=== PATIENT | male | born 1955 | race Caucasian/White ===

== ENCOUNTER 2016-07-01 09:16 | Inpatient (IN) | payer MEDICARE, OTHER ==
--- NOTE | ~2016-07-01 | CT71 ---
[facility] A Service of [facility] RADIOLOGY TEXT RESULTS PATIENT: CORNELL MCCANN LOCATION: [facility] 456-01 : 54 UNIT #: [id number] AGE: [address]: Kain Banks MD SEX: M ORDER DR: [id number] [place] [id number] [facility]. [place], [place] [address] [id number] I MR#: [id number] Acc #: [id number] NAME: CORNELL MCCANN : 1955 SEX: M STUDY DATE/TIME: 07/05/2016 15:12 UNIT: [facility] ROOM: [facility] STUDY DESCRIPTION: CT Head Wo Contrast Attending Physician: Kain Banks M.D. Referring Physician: Kain Banks M.D. Ordering Physician: Artem Webb M.D. Primary Care Physician: Generic Doctor Not In System MEDICAL IMAGING REPORT This report is preliminary unless electronic signature is present EXAM CT brain without contrast media HISTORY Diplopia, left-sided weakness beginning approximately 30 minutes ago. TECHNIQUE Transaxial imaging of the brain was performed without IV contrast media. There are no prior studies for comparison. This CT exam was performed with one or more of the following radiation dose reduction techniques: Automatic exposure control, adjustment of mA and/or kV according to patient size, and iterative reconstruction. FINDINGS Ventricular size and configuration is normal. No intra- or extraaxial mass lesions, fluid collections or mass effect are seen. No focal areas of low attenuation or evidence of acute intracranial hemorrhage. There is minimal plaque in the carotid siphons. Patient has had previous, rather extensive sinus surgery with chronic mucosal disease in the remaining sinuses. CONCLUSION 1. No acute intracranial findings. 2. Extensive previous paranasal sinus surgery and extensive chronic sinus disease. Dictated by... Flo Chun M.D. THIS IS AN ELECTRONICALLY VERIFIED REPORT Flo Chun M.D. at 07/07/2016 3:10 PM [facility] A Service [facility] RADIOLOGY TEXT RESULTS PATIENT: CORNELL MCCANN LOCATION: [facility] 456-01 : 53 UNIT #: [id number] AGE: [address]: Kain Banks MD SEX: M ORDER DR: SHERRI/mariha TD: 07/05/2016 21:23 JOB #: [id number] MEDICAL IMAGING REPORT Page 1 of 1 COPY
--- NOTE | ~2016-07-01 | CR72 ---
[facility] A Service of [facility] RADIOLOGY TEXT RESULTS PATIENT: CORNELL MCCANN LOCATION: [facility] 456- : 54 UNIT #: [id number] AGE: [address]: Kain Banks MD SEX: M ORDER DR: [id number] [facility] [address]. [place], [place] [address] [id number] I MR#: [id number] Acc #: [id number] NAME: CORNELL MCCANN : 1955 SEX: M STUDY DATE/TIME: 07/07/2016 13:28 UNIT: [facility] ROOM: [facility] STUDY DESCRIPTION: CR Chest Single View Portable Attending Physician: Kain Banks M.D. Referring Physician: Kain Banks M.D. Ordering Physician: Pari Maldonado M.D. Primary Care Physician: Generic Doctor Not In System MEDICAL IMAGING REPORT This report is preliminary unless electronic signature is present EXAM Portable chest. HISTORY Shortness of breath, onset today. TECHNIQUE Single view of the chest was obtained. FINDINGS Pacemaker leads appear satisfactory. The heart and mediastinum have a normal configuration. Linear infiltrates are seen in both lower lung vila, left greater than right, probably representing chronic fibrosis. The upper lung vila are clear and vascular markings are normal. No pleural fluid is seen. IMPRESSION Probable chronic fibrosis both lower lung vila, left greater than right. No evidence of pulmonary edema. STAT * RESULT Dictated by... Patrice Williamson M.D. THIS IS AN ELECTRONICALLY VERIFIED REPORT Patrice Williamson M.D. at 07/08/2016 10:45 AM RLF/lola TD: 07/07/2016 13:51 JOB #: [id number] MEDICAL IMAGING REPORT [facility] A Service of [facility] RADIOLOGY TEXT RESULTS PATIENT: CORNELL MCCANN LOCATION: [facility] 456-01 : 53 UNIT #: [id number] AGE: [address]: Kain Banks MD SEX: M ORDER DR: Page 1 of 1 COPY
--- NOTE | ~2016-07-01 | DS ---
Unit #: [id number] #: [id number] Patient: CORNELL HOLT [id number] [address] [place], [place] [address] [id number] I MR#: [id number] NAME: CORNELL HOLT ROOM: 456 Age: 61 Sex: M Admission Date: 07/01/2016 : 1955 Discharge Date: Attending Physician: Kain Banks M.D. Referring Physician: Kain Banks M.D. DISCHARGE SUMMARY ADMITTING DIAGNOSIS Loose right total knee. DISCHARGE DIAGNOSIS Loose right total knee. HOSPITAL COURSE On 07/01/2016, Mr. Holt underwent a right total knee revision. He tolerated the procedure well. He was transported to the 4th floor, where he underwent physical therapy, medical management, and anticoagulation therapy. He is doing well. He is ready to be discharged. DISPOSITION Stable at discharge. Discharged to [facility] in [place], [place]. MEDICATIONS ON DISCHARGE Include his routine home medications in addition to Ultram and Coumadin 6 mg p.o. daily. FOLLOWUP AND INSTRUCTIONS Mr. Holt is going to be discharged to rehab. The patient is on Coumadin for DVT prophylaxis. The PT and INRs to be drawn every Tuesday and . Call the results into [phone] or fax to [phone], heriberto Kelli. Skin raegan are to be discontinued 2 weeks postop. Please apply Steri-Strips 1/4 of an inch apart. White ALEIDA hose to be worn during the day and can be removed in the evening. The patient can shower in [address] after seen by Dr. Banks at the 6-week postop appointment. Physical therapy is to be done for active range of motion, strengthening, and progressive ambulation. The patient will be on a walker for 4 weeks and cane for an additional 2 weeks. Followup appointment with Dr. Banks in 6 weeks. Please call our office for that appointment date and time. Dictated by... Francisco J Rocha/aleja TD: 07/06/2016 03:36 JOB #: [id number] Unit #: [id number] #: [id number] Patient: CORNELL HOLT DISCHARGE SUMMARY Page 1 of 1 X Sully Lambert X DISCHARGE SUMMARY
--- NOTE | ~2016-07-01 | OR ---
Unit #: [id number] #: [id number] Patient: CORNELL MCCANN [id number] [address] [place], [place] [address] [id number] I MR#: [id number] NAME: CORNELL MCCANN ROOM: 456 Date of Procedure: 07/01/2016 Admission Date: 07/01/2016 Surgeon: Kain Banks M.D. : 1955 Attending Physician: Kain Banks M.D. Referring Physician: Kain Banks M.D. 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 PROCEDURES PERFORMED Revision of the tibia and femur and insert, right total knee. ASSISTANTS Rashad Cervantes and Tia Mayorga. ANESTHESIA Adductor canal block plus general. ESTIMATED BLOOD LOSS About 200 to 250 mL. DESCRIPTION OF PROCEDURE The patient was brought to the holding room, given vancomycin preoperatively and the patient then had an adductor canal block performed. The vancomycin will be continued postop. He was then given a general anesthetic in the operating room. Tourniquet was placed around the right thigh. The right leg was prepped and draped in a sterile fashion. Tourniquet was inflated to 300. After this was done, the patient had the right leg prepped and draped. A straight anterior skin incision was made through the old incision. Subcu dissected away and a medial arthrotomy was performed. A large amount of clear fluid was encountered. This was cultured. We then removed the polyethylene from the previous tibia, which had subsided posteriorly and had an excessive posterior slope. We then loosened the femoral component with an osteotome 0.5 inch and removed the femoral component along with the cement. After this was done, we then dissected around the posteromedial corner, subluxed the tibia anteriorly. The tibial tray was removed; although, because of the patella Baja was difficult to get out, even though it was loose. Once the tibia was out, the cement was removed from the tibial shaft and the canal was reamed up to a size 14. We then used the conical reamer for the MBT sleeve and the broaches were used for the MBT sleeve up to a size 53. The tibia was sized at a 4. We then used the reamers on the femur up to an 18. Broaches were used for the Webster Femoral Sleeve up to a size 46. We then made the box cut for posterior stabilized knee and the trial was assembled, and then the femur was inserted first and then the tibia found with a 10 mm Unit #: [id number] #: [id number] Patient: CORNELL MCCANN insert. The knee had good stability. The patella was inspected and it was found to be loose. We then opened all the real components. The knee was irrigated and dried. The posterior capsule and the periosteum were injected with a ropivacaine. After this was done, the patient then had the tibia inserted first. Excess cement was used posteriorly under the tibial tray, because of the bone loss from the posterior slope on the previous component. We cemented under the tray only. We then inserted the femur cementing under the femoral component only. Once this was in place, we then inserted 10 mm insert, which was a rotating platform posterior stabilized insert. The knee was reduced, had excellent stability. His range of motion which was quite limited preoperatively, because of his size was 0 to about 85 to 90 postoperatively. Rest of ropivacaine mixture was injected. The wound was irrigated with a dilute Betadine solution and then bacitracin. It was then closed after the tourniquet had been released and hemostasis was obtained using 0 Ethibond in the arthrotomy, 0 and 2-0 Vicryl in the subcutaneous, and raegan in the skin. Dictated by... Geo Tolentino/aleja TD: 07/02/2016 14:31 JOB #: [id number] OPERATIVE REPORT X Kain Banks MD X PROCEDURE OPERATIVE NOTE
--- NOTE | ~2016-07-01 | CT24 ---
[facility] A Service of [facility] RADIOLOGY TEXT RESULTS PATIENT: CORNELL MCCANN LOCATION: [place] [address]- : 54 UNIT #: [id number] AGE: [address]: Kain Banks MD SEX: M ORDER DR: [id number] [facility] [address] [facility]. [place], [place] [address] [id number] I MR#: [id number] Acc #: [id number] NAME: CORNELL MCCANN : 1955 SEX: M STUDY DATE/TIME: 07/05/2016 15:25 UNIT: [facility] ROOM: [facility] STUDY DESCRIPTION: CT Angio Neck Stroke Attending Physician: Kain Banks M.D. Referring Physician: Kain Banks M.D. Ordering Physician: Artem Webb M.D. MEDICAL IMAGING REPORT This report is preliminary unless electronic signature is present EXAM CT Angiography of the neck, CODE stroke, 07/05/2016. FINDINGS Please see CT angiogram head for results. Dictated by... Batsheva Hamlin M.D. THIS IS AN ELECTRONICALLY VERIFIED REPORT Batsheva Hamlin M.D. at 07/06/2016 2:24 PM Esteban TD: 07/05/2016 17:13 JOB #: [id number] MEDICAL IMAGING REPORT Page 1 of 1 COPY
--- NOTE | ~2016-07-01 | BMI ---
[facility] Nutrition Therapy DATE: 07/02/16 Patient: CORNELL MCCANN Physician: MONISHA Address: [address] [place] [address] Room/Bed: [address] [place] [address], Zip: [place] [address] Admit Date: 07/01/16 Date of : 53 Height: 5 9 Weight: 299 136 HIGH BMI NOTE: DX: 61 yo male admitted for loosening of right total knee replacement ANTHROPOMETRICS: HT: 5'9" WT: 135.9 kg (299#) BMI: 44.2 DIET: Regular INTERVENTION: 1. Heart healthy diet RECOMMENDATIONS: 1. Recommend to change diet to heart healthy to promote gradual weight loss towards healthy BMI RD will f/u per protocol. Respectfully, UGO CRUMP, Application Specialist Yeimi Renee RD, LD Food and Nutritional Services [facility] cc: client file
--- NOTE | ~2016-07-01 | CT18 ---
[facility] A Service of [facility] & [facility] RADIOLOGY TEXT RESULTS PATIENT: CORNELL MCCANN LOCATION: [facility] 456-01 : 54 UNIT #: [id number] AGE: [address]: Kain Banks MD SEX: M ORDER DR: [id number] [facility] [address] [place], [place] [address] [id number] I MR#: [id number] Acc #: [id number] NAME: CORNELL MCCANN : 1955 SEX: M STUDY DATE/TIME: 07/05/2016 15:25 UNIT: [facility] ROOM: [facility] STUDY DESCRIPTION: CT Angio Head Stroke Attending Physician: Kain Banks M.D. Referring Physician: Kain Banks M.D. Ordering Physician: Artem Webb M.D. Primary Care Physician: Generic Doctor Not In System MEDICAL IMAGING REPORT This report is preliminary unless electronic signature is present EXAM CT-Angiogram of the head and neck, CODE stroke, 07/05/2016. HISTORY 4th floor, inpatient complains of double vision and left-sided weakness starting 30 minutes prior to the initial head CT obtained 15:12, 07/05/2016. COMMENT CT angiogram obtained during the intervenous administration of 100 mL of Isovue-370 with imaging acquired in the axial plane, followed by multiple reconstructed and reformatted images for the purpose of 3-D CT angiography of the head and neck vessels. There is earlier noncontrasted head CT, same day. There is normal aortic arch branch pattern. Evaluation of the right carotid system shows 0% stenosis by NASCET criteria. There is mild plaque at the right carotid siphon, probably only mild narrowing. Assessment of the left carotid system shows 0% stenosis at the left carotid bifurcation. Mild plaque at the left carotid siphon with probably only mild stenosis. Evaluation of the left vertebral artery shows some obscuration of the proximal left vertebral artery by venous contrast inflow artifact. Otherwise, the left vertebral artery is patent throughout the neck and in the central cranial portion. Evaluation of the right vertebral artery shows vessel to be patent throughout the neck. Also, patent intracranially, and the vessels are essentially codominant. [facility] A Service of [facility] & [facility] RADIOLOGY TEXT RESULTS PATIENT: CORNELL MCCANN LOCATION: [facility] 456-01 [facility] [id number] : 54 UNIT #: [id number] AGE: [address]: Kain Banks MD SEX: M ORDER DR: Evaluation of the intracranial circulation shows no focal central stenosis or definite intracranial vascular cutoff. The dural venous sinuses are patent. Neither posterior communicator is definitely seen. The A-1/A-2 vessels come in close proximity. I cannot see a discrete anterior communicator because of this. There is paranasal sinuses disease, including opacification of a left posterior ethmoid air cell. There is chronic osteitis mucosal thickening, left maxillary sinus, and evidence of fairly extensive prior paranasal sinuses surgery, with likely uncinatectomy and ethmoidectomies partially bilaterally. Please correlate with the history. There is some atelectasis of the remaining left maxillary sinus. The mastoid air cells are clear. There are degenerative changes in the cervical spine. IMPRESSION 1. By NASCET criteria, 0% stenosis suspected at either carotid bifurcation. Both vertebral arteries are patent in their visualized portions and fairly balanced. 2. There is no intracranial vascular cutoff or focal central stenosis suspected. Nothing to suggest an intracranial aneurysm, allowing for technical limitation of CT angiography, in general, for assessment for aneurysm at the level of the skull base at this institution. 3. Partly seen is considerable paranasal sinuses disease and evidence of prior paranasal sinus surgery. There are also cervical spine degenerative changes. If the patient is a candidate for MRI, this would be more sensitive for follow-up if there is continued concern for stroke. Patient has a pacemaker present. Please correlate further clinically with the type of pacemaker in this patient. STAT * RESULT Dictated by... Batsheva Hamlin M.D. THIS IS AN ELECTRONICALLY VERIFIED REPORT Batsheva Hamlin M.D. at 07/06/2016 2:24 PM NICOLE/shaun TD: 07/05/2016 17:05 JOB #: [id number] MEDICAL IMAGING REPORT Page 1 of 1 COPY
--- NOTE | ~2016-07-01 | CO ---
Unit #: [id number] #: [id number] Patient: CORNELL MCCANN [id number] [facility]. [place], [place] [address] [id number] I MR#: [id number] NAME: CORNELL MCCANN ROOM: 456 Age: 61 Sex: M Admission Date: 07/01/2016 : 1955 Attending Physician: Kain Banks M.D. Primary Care Physician: Generic Doctor Not In System CONSULTATION REPORT This is Dr. Stepan dee. REASON FOR CONSULTATION Further management of orthostatic hypotension. HISTORY OF PRESENT ILLNESS The patient is a 61-year-old old male with a history of right total knee arthroplasty completed on 11/08/2006 complicated with increased pain in the right knee ever since surgery. The patient had a right total knee vision on 07/01/2016. The patient was started on prophylaxis for the DVT. The patient was discharged to the [facility] [place] and yesterday the patient was discharged and was on hold secondary to the patient started complaining of double vision and hypotension. The Rapid Response Team was called in and that was jamel to the code stroke. The patient was seen by the Neurology yesterday. I recommended the CT of the head stat to rule out the stroke. The CT of the head is negative. The patient continues to have the diplopia or double vision with both eyes and once he closed the one eye, he can see the vision normally. The patient denies any chest pain, palpitations, nausea, or vomiting. The patient was also found to have orthostatic hypotension with blood pressure lying was 142/79 and sitting was 122/71, and standing was 103/65. An emergency consult has been placed for further management of orthostatic hypotension. In the labs, the patient had Coumadin toxicity with INR of 4.1 and hemoglobin is down to 8.9 from the baseline of 9.8. The patient denies any black colored stools or any blood in the urine. PAST MEDICAL HISTORY History of osteoarthritis of the knee, sleep apnea, history of sick sinus syndrome, status post pacemaker, BPH, hearing loss, testicular lymphoma, Liu cyst, anxiety, bleeding disorder, diabetes, stroke. 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 HOME MEDICATIONS He is on K-Annabelle, topiramate, tamsulosin, paroxetine, gabapentin, Lasix, doxepin, vitamin B12, Xanax. SOCIAL HISTORY No history of heavy smoking, cigars, drinking alcohol, or illicit drug abuse. FAMILY HISTORY Unit #: [id number] #: [id number] Patient: CORNELL MCCANN Father with history of cancer. Mother with history of hypertension. ALLERGIES No known drug allergies. REVIEW OF SYSTEMS 14-point review of systems performed and only pertinent positive findings are described, remaining are negative. PHYSICAL EXAMINATION GENERAL: The patient is sitting on a chair, not in acute distress. VITAL SIGNS: Temperature 98, pulse 64, respirations 16, blood pressure 113/60. HEENT: Head, atraumatic, normocephalic. Pupils are equal, round, and reactive to light and accommodation. Extraocular movements are intact. NECK: Supple. LUNGS: Clear to auscultation bilaterally. No rhonchi. No wheezing. HEART: Regular rate and rhythm. Status post pacemaker. EXTREMITIES: Status post right total knee revision. NEUROLOGIC: Alert, awake, oriented with diplopia with 2 eyes. DIAGNOSTIC STUDIES LABORATORY RESULTS: Glucose 88, BUN 16, creatinine 1, sodium 139, potassium 4, chloride 108, bicarb 25, calcium 8.4, total protein 5.3, AST 15, ALT 12, alkaline phosphatase 94, ammonia 22. B12 more than 1500, folate 15.3. Hemoglobin 4.7. Cholesterol 99, triglyceride 48. TSH 0.83. INR 4.1. Sugar is 173. WBC 2.5, hemoglobin 8.9, hematocrit 27.8, and platelet 116. IMAGING STUDIES: CT of the head shows no acute intracranial findings, extensive previous paranasal sinus surgery and extensive chronic sinus disease. ASSESSMENT AND PLAN 1. Status post right total knee revision on . 2. Diplopia. 3. Orthostatic hypotension. 4. Coumadin toxicity. Discharge is on hold secondary to the above reasons due to diplopia and hypotension and the patient has been evaluated for the diplopia. There is negative CT of the head. Recommend to hold the Lasix and check the fecal occult blood test. Hold the Coumadin with INR of 4.5 and repeat CBC and BMP in the morning. Recommend after evaluation for the diplopia. The patient's TSH is normal and hemoglobin A1c is normal and the etiology of the diplopia unknown at this time and further recommendations will follow as more lab results are available. Dictated by... Geo Ackerman TD: 07/07/2016 00:30 JOB #: [id number] Unit #: [id number] #: [id number] Patient: CORNELL MCCANN CONSULTATION REPORT Page 1 of 1 X X CONSULTATION REPORT
--- NOTE | ~2016-07-01 | CO ---
Unit #: [id number] #: [id number] Patient: CORNELL MCCANN [id number] [facility] [address]. [place], [place] [address] [id number] Veronica MR#: [id number] NAME: CORNELL MCCANN ROOM: 456 Age: 61 Sex: M Admission Date: 07/01/2016 : 1955 Attending Physician: Kain Banks M.D. Consultation Date: 07/05/2016 CONSULTATION REPORT PATIENT IDENTIFICATION This is a 61-year-old right-handed white male, who is evaluated in room 456 at [facility]. SOURCE OF INFORMATION The patient and medical records. Actually most of them are outside medical records. PROBLEM LIST 1. He was admitted for right knee, I believe, elective surgery and it was revised already. 2. He has bilateral total knee surgery. 3. Osteoarthritis of the knee. 4. Sleep apnea. 5. Obesity. 6. Coronary artery disease. 7. BPH. 8. Hearing loss. 9. Testicular lymphoma, status post chemo and radiation. 10. Liu cyst. 11. Diarrhea/gastric bypass. 12. Anxiety. 13. Question about bleeding issues. 14. Diabetes. 15. Renal disease. 16. Pneumonia. 17. Prior stroke. HISTORY OF PRESENT ILLNESS This is a very pleasant, 61-year-old gentleman, who is actually admitted, I believe, for elective surgery. He had the surgery done yesterday. Initially MET call was placed and then this was converted to code stroke around 3:00 p.m. The reason was that he complained of some diplopia and left-sided numbness. When I saw him, he was more lethargic than anything else. His blood pressure is running a bit low. He is a bit anemic. He is on anticoagulation with INR of 2.6, so I ended up doing a CT, which was unremarkable. I requested a CTA, which was also unremarkable. He is not an MRI candidate because he has a pacemaker. He was more lethargic than any other issues and baseline labs did not show anything, so we decided to observe him and see how things go. This morning, he is more awake, essentially fully oriented. He is complaining of diplopia and the primary vision not really otherwise. On Unit #: [id number] #: [id number] Patient: CORNELL MCCANN exam, there is nothing really. He wants to go home, but INR is elevated to 4.1, so he is going to be observed. His labs did not really show anything major. No falls or injuries. He is status post surgery. PAST MEDICAL HISTORY As discussed above. PAST SURGICAL HISTORY As discussed above. He also has a pacemaker placement. HOME MEDICATIONS Apparently were Seroquel 25 mg at bedtime, Minipress, gabapentin, vitamin B12, Klor-Con, topiramate 100 mg p.o. daily, pravastatin 40 mg at bedtime, tamsulosin, omeprazole, Fioricet/codeine 50/325/40/30 1 tablet every 6 hours as needed, ondansetron, paroxetine, Lasix, Pradaxa 150 mg p.o. b.i.d., alprazolam 1 mg p.o. t.i.d. FAMILY HISTORY Father had cancer. Mother had hypertension. SOCIAL HISTORY Never smoked. No real alcohol or drug history. REVIEW OF SYSTEMS Lethargy, nothing major otherwise. He also complained of diplopia as discussed. He has chronic weight issues. No sleep problems, fever, chills, rigors, but he has obstructive sleep apnea. HEENT: Questionable diplopia. CARDIOLOGY: He has pacemaker. No active issues. PULMONARY: No shortness of air, cough, or expectoration. ABDOMEN: No nausea, vomiting, diarrhea, or constipation. GENITOURINARY: No genitourinary symptoms. EXTREMITIES: Status post right knee revision. BACK: No back problems. PSYCHIATRIC: Shows significant anxiety. NEUROLOGIC: Looks like he has prior stroke. He is on anticoagulation. No other hematologic, dermatologic, or endocrine issues known to me. PHYSICAL EXAMINATION VITAL SIGNS: Temperature 98 degrees Fahrenheit, pulse 64, respirations 16, blood pressure 113/60, O2 saturations were 95% to 98%. NEUROLOGIC: The patient today is awake and alert. He is struggling with exact date of the month. Otherwise, he is fully oriented. He can name and he can follow commands. No right or left confusion. No finger agnosia. Cranial nerve examination demonstrates full vila of vision. Eye movements are conjugate. I did not see any ptosis. I did not see any nystagmus. Extraocular movements are intact. He is complaining of diplopia in primary vila, but I really did not see any asymmetry. Sensation on the face and scalp are normal. Strength of muscles of facial expression normal. Hearing seemed to be intact bilaterally. Tongue was Unit #: [id number] #: [id number] Patient: CORNELL MCCANN. I could not visualize his oropharynx or uvula. Head turning and shoulder shrugs were unremarkable. Motor examination demonstrated normal bulk, tone. Strength was essentially 5/5 all over except for right knee surgery done so that is going to be an issue. Sensory examination intact for soft touch and pain sensation. No extinction was seen. Romberg was not evaluated. Gait exams were deferred. I could not get any reflexes. Coordination was normal. DIAGNOSTIC STUDIES IMAGING STUDIES: Reviewed. LABORATORY RESULTS: Random glucose is 88, ammonia was 22. B12 was greater than 1500. TSH was 0.83. Free T4 was 0.96. His white count is 4.5, H and H of 9 and 28; today WBC 2.5, H and H of 8.9 and 27.8, platelet count was 116. IMPRESSION This is a very interesting 61-year-old gentleman, who had some lethargy, question about diplopia. I really doubt a major stroke. His CT/CTA is okay. He is already anticoagulated. I cannot do an MRI on him. He has a pacemaker. He has no other symptoms. At home, he was on appropriate anticoagulation and I talked to Dr. Banks and I will observe him and see how things go. Further treatment will be based on how he does. We are watching him closely for his anticoagulation and we will see him tomorrow. Resume his anticoagulation when he leaves. Resume his lipid-lowering medication and we will see how things go. He is a bit anemic, a big gentleman, so that may be contributing but we will see how things bucket turner. I will follow him and call me if any other questions, issues, or concerns. Dictated by... Geo Chester/aleja TD: 07/07/2016 01:27 JOB #: [id number] CONSULTATION REPORT Page 1 of 1 X Artem Webb MD CONSULTATION REPORT
[~2016-07-01 09:16] MED LIST: ALAGESIC CAPSUL1 CAP PO; DIFLUCAN100 MG PO; DOXEPIN HCL25 MG PO; MAGNESIUM400 MG PO; NYSTATIN15 GM OINT TOP; TOPAMAX50 MG PO
[2016-07-01] MEDS ORDERED: FIORICET-COD 51 EACH PO (09:53)
[2016-07-01 10:11] LABS: PROTHROMBIN TIME (PATIENT) 10.7 SECONDS (9.6-11.5)
[2016-07-01] MEDS ORDERED: SEROQUEL25 MG PO (14:23)
[2016-07-01] MEDS ORDERED: MINIPRESS PO (14:26)
[2016-07-01] MEDS ORDERED: GABAPENTIN600 MG PO (14:39)
[2016-07-01] MEDS ORDERED: B-121000 MC1 PO (14:40)
[2016-07-01] MEDS ORDERED: KCL PO (14:42)
[2016-07-01] MEDS ORDERED: PAROXETINE HCL40 M1 PO (14:47)
[2016-07-01] MEDS ORDERED: ONDANSETRO8 MG/UDTAB PO (14:47)
[2016-07-01] MEDS ORDERED: LASIX20 MG PO (14:48)
[2016-07-01] MEDS ORDERED: PRADAXA150 MG PO (14:48)
[2016-07-01] MEDS ORDERED: TOPIRAMATE100 MG PO (14:49)
[2016-07-01] MEDS ORDERED: ALPRAZOLAM1 MG PO (14:49)
[2016-07-01] MEDS ORDERED: PRAVASTATIN SOD40 MG PO (14:51)
[2016-07-01] MEDS ORDERED: OMEPRAZOLE20 M2 PO (14:52)
[2016-07-01] MEDS ORDERED: TAMSULOSIN HCL0.4 MG PO (14:52)
[2016-07-02 03:07] LABS: HEMOGLOBIN 9.8 gm/dL (13.0-16.0); MEAN CELL VOLUME 85.8 FL (83-96); MEAN CORPUSCULAR HEMOGLOBIN 27.1 PG (28-34); MEAN CORPUSCULAR HGB CONC 31.5 g/dL (30-36); MEAN PLATELET VOLUME 9.1 FL (6.5-11.5); RED BLOOD COUNT 3.61 X10e (3.90-5.60); RED CELL DISTRIBUTION WIDTH 14.3 % (11.0-15.5); WHITE BLOOD COUNT 4.1 X10e3 (4.0-10.5)
[2016-07-02 03:22] LABS: INR 1.1; PROTHROMBIN TIME (PATIENT) 11.3 SECONDS (9.6-11.5)
[2016-07-03 03:52] LABS: HEMATOCRIT 29.1 % (38.0-50.0); HEMOGLOBIN 9.2 gm/dL (13.0-16.0); MEAN CELL VOLUME 85.7 FL (83-96); MEAN CORPUSCULAR HEMOGLOBIN 27.2 PG (28-34); MEAN CORPUSCULAR HGB CONC 31.8 g/dL (30-36); MEAN PLATELET VOLUME 9.3 FL (6.5-11.5); RED BLOOD COUNT 3.39 X10e (3.90-5.60); RED CELL DISTRIBUTION WIDTH 14.4 % (11.0-15.5); WHITE BLOOD COUNT 4.9 X10e3 (4.0-10.5)
[2016-07-03 03:59] LABS: INR 1.3; PROTHROMBIN TIME (PATIENT) 13.6 SECONDS (9.6-11.5)
[2016-07-04 03:41] LABS: HEMATOCRIT 27.9 % (38.0-50.0); HEMOGLOBIN 8.9 gm/dL (13.0-16.0); MEAN CELL VOLUME 84.5 FL (83-96); MEAN CORPUSCULAR HEMOGLOBIN 27.1 PG (28-34); MEAN CORPUSCULAR HGB CONC 32.1 g/dL (30-36); MEAN PLATELET VOLUME 9.1 FL (6.5-11.5); RED BLOOD COUNT 3.3 X10e (3.90-5.60); RED CELL DISTRIBUTION WIDTH 14.3 % (11.0-15.5); WHITE BLOOD COUNT 4.5 X10e3 (4.0-10.5)
[2016-07-04 03:52] LABS: INR 1.6; PROTHROMBIN TIME (PATIENT) 17.2 SECONDS (9.6-11.5)
[2016-07-05 03:15] LABS: MEAN CELL VOLUME 85.5 FL (83-96); MEAN CORPUSCULAR HEMOGLOBIN 27.3 PG (28-34); MEAN PLATELET VOLUME 9.3 FL (6.5-11.5); RED BLOOD COUNT 3.28 X10e (3.90-5.60); RED CELL DISTRIBUTION WIDTH 14.2 % (11.0-15.5); WHITE BLOOD COUNT 3.5 X10e3 (4.0-10.5)
[2016-07-05 03:41] LABS: INR 2.6; PROTHROMBIN TIME (PATIENT) 28.5 SECONDS (9.6-11.5)
[2016-07-05 15:38] LABS: BLOOD UREA NITROGEN 20 mg/dL (9-23); GLOM FILT RATE Estimated ABOVE60 mL/min (>60)
[2016-07-05 16:16] LABS: POC - CREATININE 1.37 mg/dL (0.64-1.27)
[2016-07-06 04:38] LABS: BASOPHIL% 0.8 % (0-2.5); EOSINOPHIL# 0.2 X10e3 (0-0.7); EOSINOPHIL% 9.9 % (0.0-7.0); HEMATOCRIT 27.8 % (38.0-50.0); HEMOGLOBIN 8.9 gm/dL (13.0-16.0); LYMPHOCYTE# 0.7 X10e3 (1.0-3.5); LYMPHOCYTE% 27.1 % (17.0-45.0); MEAN CELL VOLUME 84.7 FL (83-96); MEAN CORPUSCULAR HEMOGLOBIN 27.2 PG (28-34); MEAN CORPUSCULAR HGB CONC 32.1 g/dL (30-36); MEAN PLATELET VOLUME 8.9 FL (6.5-11.5); MONOCYTE# 0.3 X10e3 (0-1.0); MONOCYTE% 12.2 % (3.0-12.0); NEUTROPHIL# 1.2 X10e3 (1.5-7.1); PLATELET COUNT 116 X10e3 (140-420); RED BLOOD COUNT 3.29 X10e (3.90-5.60); RED CELL DISTRIBUTION WIDTH 14.7 % (11.0-15.5); WHITE BLOOD COUNT 2.5 X10e3 (4.0-10.5)
[2016-07-06 04:40] LABS: DIFF IND YES
[2016-07-06 04:45] LABS: INR 4.1
[2016-07-06 04:47] LABS: PROTHROMBIN TIME (PATIENT) 45.1 SECONDS (9.6-11.5)
[2016-07-06 04:54] LABS: PLATELET ESTIMATE DECREASED (NORMAL); RBC NORMAL YES
[2016-07-06 05:05] LABS: THYROID STIMULATING HORMONE 0.83 uIU/ml (0.34-5.60)
[2016-07-06 05:12] LABS: FREE THYROXIN (T4) 0.96 ng/dL (0.58-1.64)
[2016-07-06 05:19] LABS: FOLATE (FOLIC ACID) 15.3 ng/mL (>5.8)
[2016-07-06 08:31] LABS: ALBUMIN SERUM 2.5 g/dL (3.5-5.0); ALKALINE PHOSPHATASE 94 U/L (32-92); ALT (SGPT) 12 U/L (10-40); AST (SGOT) 15 U/L (10-42); BILIRUBIN,TOTAL 0.6 mg/dL (0.2-2.0); BLOOD UREA NITROGEN 16 mg/dL (9-23); CALCIUM SERUM 8.4 mg/dL (8.4-10.2); CARBON DIOXIDE 25 mmol/L (22-31); CHLORIDE 108 mmol/L (100-111); GLOM FILT RATE Estimated ABOVE60 mL/min (>60); GLUCOSE FASTING 88 mg/dL (70-110); PROTEIN TOTAL SERUM 5.3 g/dL (6.0-8.3); SODIUM 139 mmol/L (135-145)
[2016-07-06 10:27] LABS: CHOLESTEROL 99 mg/dL (0-200); HDL CHOLESTEROL 41 mg/dL (29-75); LDL CHOLESTEROL 48 mg/dL (-130); LDL/HDL RATIO 1 RATIO (0-4); TRIGLYCERIDES 48 mg/dL (10-160)
[2016-07-07 04:00] LABS: INR 3.5
[2016-07-07 04:08] LABS: HEMATOCRIT 28.3 % (38.0-50.0); MEAN CORPUSCULAR HEMOGLOBIN 27.2 PG (28-34); MEAN CORPUSCULAR HGB CONC 31.9 g/dL (30-36); MEAN PLATELET VOLUME 9.2 FL (6.5-11.5); RED BLOOD COUNT 3.33 X10e (3.90-5.60); RED CELL DISTRIBUTION WIDTH 14.1 % (11.0-15.5); WHITE BLOOD COUNT 2.6 X10e3 (4.0-10.5)
[2016-07-07 04:13] LABS: BLOOD UREA NITROGEN 15 mg/dL (9-23); BUN/CREATININE RATIO 16.66; CALCIUM SERUM 8.5 mg/dL (8.4-10.2); CARBON DIOXIDE 24 mmol/L (22-31); CHLORIDE 110 mmol/L (100-111); CREATININE SERUM 0.9 mg/dL (0.6-1.4); GLOM FILT RATE Estimated ABOVE60 mL/min (>60); GLUCOSE FASTING 91 mg/dL (70-110); POTASSIUM 4.1 mmol/L (3.5-5.1); SODIUM 140 mmol/L (135-145)
[2016-07-07] MEDS ORDERED: ULTRAM PO (15:24)
== END 2016-07-07 17:54 | disposition home health service (06) | DRG 467 ==
LOC: CSUR 09:16 → CPACUOF 11:00 → C4B 16:39
PROVIDERS: Internal Medicine; Nurse Practitioner; Orthopaedic Surgery; Psychiatry & Neurology Neurology
PROC: 0SPC09Z Removal of Liner from Right Knee Joint, Open Approach (ICD-10-PCS; 2016-07-01)
PROC: 0SPC0JZ Removal of Synthetic Substitute from Right Knee Joint, Open Approach (ICD-10-PCS; 2016-07-01)
PROC: 0SUV09Z Supplement Right Knee Joint, Tibial Surface with Liner, Open Approach (ICD-10-PCS; 2016-07-01)
PROC: 0SRC0J9 Replacement of Right Knee Joint with Synthetic Substitute, Cemented, Open Approach (ICD-10-PCS; principal; 2016-07-01 11:30)
PROC: B32RYZZ Computerized Tomography (CT Scan) of Intracranial Arteries using Other Contrast (ICD-10-PCS; 2016-07-05)
PROC: B32GYZZ Computerized Tomography (CT Scan) of Bilateral Vertebral Arteries using Other Contrast (ICD-10-PCS; 2016-07-05)
DX: T84.032A Mechanical loosening of internal right knee prosthetic joint, initial encounter (principal); D61.818 Other pancytopenia; E11.22 Type 2 diabetes mellitus with diabetic chronic kidney disease; Z68.41 Body mass index [BMI] 40.0-44.9, adult; Z96.653 Presence of artificial knee joint, bilateral; F41.9 Anxiety disorder, unspecified; Z79.84 Long term (current) use of oral hypoglycemic drugs; Z90.49 Acquired absence of other specified parts of digestive tract; G47.33 Obstructive sleep apnea (adult) (pediatric); F32.9 Major depressive disorder, single episode, unspecified; Z95.0 Presence of cardiac pacemaker; E53.8 Deficiency of other specified B group vitamins; I12.9 Hypertensive chronic kidney disease with stage 1 through stage 4 chronic kidney disease, or unspecified chronic kidney disease; N18.9 Chronic kidney disease, unspecified; Z85.72 Personal history of non-Hodgkin lymphomas; H53.2 Diplopia; I95.1 Orthostatic hypotension; T45.515A Adverse effect of anticoagulants, initial encounter; I25.10 Atherosclerotic heart disease of native coronary artery without angina pectoris; E66.9 Obesity, unspecified; Z86.73 Personal history of transient ischemic attack (TIA), and cerebral infarction without residual deficits; Z98.84 Bariatric surgery status; Z88.0 Allergy status to penicillin; Z88.2 Allergy status to sulfonamides; D64.9 Anemia, unspecified
CPT/HCPCS: 70450; 70496; 70498; 71010; 80048; 80053; 80061; 82140; 82274; 82565; 82607; 82746; 82947; 83036; 84439; 84443; 84520; 85025; 85027; 85610; 86850; 86900; 86901; 87070; 87075; 87205; 94760; 97110; 97116; 97163; 97166; 97530; 97535; C1713; C1776; G8978-GP; G8979-GP; G8980-GP; G8987-GO; G8988-GO; J0131; J0171; J0330; J0735; J1100; J1170; J1650; J2250; J2405; J2710; J2795; J3010; J3370; Q9967